=== PATIENT | female | born 1945 | race Hispanic/Latino ===

== ENCOUNTER 2018-03-13 17:50 | Emergency (ER) | payer MEDICARE, OTHER ==
[2018-03-13 19:20] LABS: #Eosinphils 0.1 thou/uL (0.0-0.7); #Lymphocytes 2.8 thou/uL (1.20-3.40); #Monocytes 0.5 thou/uL (0.11-0.59); %Basophils 0.5 % (0.0-1.0); %Eosinophils 0.6 % (0.0-10.0); Hemoglobin 14.4 g/dL (12.0-16.0); Mean Corpuscular HGB CONC 35.6 g/dL (32.0-36.0); Mean Corpuscular Hemoglobin 32.9 pg (27.0-31.0); Mean Corpuscular Volume 92.5 fl (81.0-99.0); Mean Platelet Volume 6.3 fL (7.4-10.4); Platelet Count 192 thou/uL (130-400); RBC Distribution Width 11.7 % (11.5-14.5); Red Blood Cell (RBC) Count 4.39 mill/uL (4.20-5.40); White Blood Cell (WBC) Count 9.4 thou/uL (4.8-10.8)
[2018-03-13 19:40] LABS: ALT (SGPT) 23 U/L (8-55); AST (SGOT) 20 U/L (5-34); Albumin 4.1 g/dL (3.4-4.8); Alkaline Phosphatase 92 U/L (40-150); Anion Gap 14 mmol/L (10-20); BUN (Urea Nitrogen) 17 mg/dL (9.8-20.1); Bilirubin, Total 0.6 mg/dL (0.2-1.2); CK (CPK) 49 U/L (29-168); Calc. Creatinine Clearance 0 mL/min (70-130); Calcium 9.4 mg/dL (7.8-10.44); Carbon Dioxide 24 mmol/L (23-31); Estimated GFR-MDRD 54; Globulin 2.5 g/dL (2.4-3.5); Glucose 87 mg/dL (83-110); Magnesium 1.7 mg/dL (1.6-2.6); Potassium 4.3 mmol/L (3.5-5.1); Protein, Total 6.6 g/dL (6.0-8.3)
[2018-03-13 19:47] LABS: CKMB 0.9 ng/mL (0-6.6); Troponin I Less than 0.010 ng/mL (< 0.028)
[2018-03-13 19:50] LABS: Chloride 96 mmol/L (98-107); Sodium 130 mmol/L (136-145)
[2018-03-13 19:55] LABS: Bilirubin Negative (Negative); Blood, Urine Negative (Negative); Clarity CLOUDY (Clear); Glucose, Urine (Dipstick) Negative (Negative); Leukocyte Trace (Negative); Nitrite Negative (Negative); Protein, Urine (Dipstick) Negative (Neg-Trace); Specific Gravity, Urine 1.011 (1.002-1.036); Urobilinogen 0.2 mg/dL (0.2-1.0)
[2018-03-13 19:58] LABS: Bacteria/HPF None Seen HPF (None Seen); Hyaline Casts/LPF 4-6 HYALINE CAST LPF (0-3 Hyaline); Pathc Cast-AUWi Flag 1.16 (0-2.49); RBC/HPF 0-3 HPF (0-3); Squamous Epithelial 0-3 HPF (0-3); WBC/HPF 0-3 HPF (0-3)
--- NOTE | 2018-03-13 20:12 | CT ---
CT HEAD WITHOUT CONTRAST: 03/13/2018 HISTORY: Swelling. Headache. Altered mental status. Possible allergic reaction. COMPARISON: None. TECHNIQUE: Serial axial CT imaging at 5 mm intervals, from the vertex through the skull base, without contrast. FINDINGS: The imaged paranasal sinuses and mastoid air cells are well aerated. No displaced calvarial fracture is seen. There is no intracranial hemorrhage, midline shift, mass effect, or ventricular enlargemen t. IMPRESSION: No acute findings. POS: GUAADLUPEH
== END 2018-03-13 20:45 | disposition home or self-care (01) ==
LOC: ERS 17:50
DX: R06.4 Hyperventilation (principal); T46.4X5A Adverse effect of angiotensin-converting-enzyme inhibitors, initial encounter; E11.9 Type 2 diabetes mellitus without complications; I10 Essential (primary) hypertension; F17.210 Nicotine dependence, cigarettes, uncomplicated; Z79.82 Long term (current) use of aspirin; Z79.899 Other long term (current) drug therapy; Z79.84 Long term (current) use of oral hypoglycemic drugs
CPT/HCPCS: 36415; 70450; 80053; 81003; 81015; 82550; 82553; 83735; 84443; 84484; 85025; 93005

== ENCOUNTER 2018-11-21 08:10 | Outpatient (CLI) | payer MEDICARE, OTHER ==
--- NOTE | 2018-11-21 09:23 | CT ---
CT OF THE THORAX WITHOUT IV CONTRAST UTILIZING A LUNG CANCER SCREENING PROTOCOL. INDICATION: History of nicotine dependence and currently a current smoker. The patient smokes approximately 1 pa ck per day for 20 years. The patient is 73 years of age. COMPARISON: Prior CT pulmonary lung cancer screening evaluation dated 05/16/2018. FINDINGS: Previously seen 4-5 mm subpleural pulmonary nodule within the right upper lobe has resolved. No new suspicious pulmonary nodule is evident. There is a fat-containing right-sided Bochdalek hernia. No suspicious lymphadenopathy is evident. There are coronary artery thoracic aorta calcifications. Vis ualized upper abdomen is unremarkable. Mild superior end plate compression abnormal of T3, T5, and T 6 are stable to the comparison. This may be related to mild Schmorl's nodes. IMPRESSION: Lung RADS category 2 - benign. Recommend followup CT evaluation in 1 year. Previously seen small potts bpleural pulmonary nodule within the right upper lobe on the comparison examination has resolved. No new suspicious pulmonary nodule is evident. POS: BERNARD
== END 2018-11-21 08:11 | disposition home or self-care (01) ==
LOC: CT 08:10
PROVIDERS: ATTEND Internal Medicine
DX: F17.210 Nicotine dependence, cigarettes, uncomplicated (principal); R22.2 Localized swelling, mass and lump, trunk
CPT/HCPCS: G0297

== ENCOUNTER 2019-01-02 09:13 | Outpatient (CLI) | payer MEDICARE, OTHER ==
--- NOTE | 2019-01-02 10:15 | MMO ---
Bilateral MAMMO Bilat Screen [facility]. CLINICAL HISTORY: Patient is 73 years old and is seen for screening. The patient has the following family history of breast cancer: mother, at age 43. The patient has no personal history of cancer. The patient has a history of left Cyst Aspiration in 1979 - benign. VIEWS: The views performed were: bilateral craniocaudal with tomosynthesis and bilateral mediolateral oblique with tomosynthesis. FILMS COMPARED: The present examination has been compared to prior imaging studies performed at [facility] on 09/15/2012, 09/25/2013, 11/05/2014, 12/25/2015 and 12/31/2016. MAMMOGRAM FINDINGS: There are stable benign appearing calcifications seen in both breasts. There are no suspicious masses, suspicious calcifications, or new areas of architectural distortion. IMPRESSION: THERE IS NO MAMMOGRAPHIC EVIDENCE OF MALIGNANCY. A ROUTINE FOLLOW-UP MAMMOGRAM IN 1 YEAR IS RECOMMENDED. THE RESULTS OF THIS EXAM WERE SENT TO THE PATIENT. ACR BI-RADS Category 2 - Benign finding MAMMOGRAPHY NOTE: 1. A negative mammogram report should not delay a biopsy if a dominant of clinically suspicious mass is present. 2. Approximately 10% to 15% of breast cancers are not detected by mammography. 3. Adenosis and dense breasts may obscure an underlying neoplasm.
--- NOTE | 2019-01-02 11:00 | BD ---
DEXA BONE DENSITY STUDY: HISTORY: Postmenopausal. FINDINGS: Lumbar Spine: BMD (g/cm2) L1 0.891 T-Score: -0.9 L2 0.867 T-Score: -1.5 L3 0.894 T-Score: -1.7 L4 0.864 T-Score: -1.8 L1-L4 0.878 T-Score: -1.5 Femoral Neck: 0.673 T-Score: -1.6 Total Femur: 0.868 T-Score: -0.6 Impression: 1. Osteopenia of lumbar spine and left femoral neck 2. Ten-year fracture risk of major osteoporotic fracture is 11% and of hip fracture is 3%. These fr acture probabilities are calculated for an untreated patient. POS: TPC
== END 2019-01-02 09:14 | disposition home or self-care (01) ==
LOC: BICMAMMO 09:13
PROVIDERS: ATTEND Internal Medicine
DX: Z12.31 Encounter for screening mammogram for malignant neoplasm of breast (principal); M85.89 Other specified disorders of bone density and structure, multiple sites; Z80.3 Family history of malignant neoplasm of breast
CPT/HCPCS: 77063; 77067; 77080

== ENCOUNTER 2019-05-15 11:50 | Outpatient (CLI) | payer MEDICARE, OTHER ==
--- NOTE | 2019-05-16 13:44 | ULT ---
LOWER EXTREMITY ARTERIAL EVALUATION USING DOPPLER WAVEFORM ANALYSIS AND SEGMENTAL LIMB PRESSURES Examination of the right leg reveals satisfactory femoral waveform as well as popliteal and dorsalis pedis waveforms with an ankle-arm of 0.96. Toe-brachial index is slightly diminished. Left lower extremity demonstrates slightly abnormal left femoral waveform but good waveform in the po pliteal and satisfactory waveforms in the pedal vessels with an ankle-arm index of 0.93. Toe-brachial index was slightly decreased. The study demonstrates overall well preserved flow to the lower extremities at rest and there is lashawn e possibility of small vessel disease based on toe-brachial index that is depressed. Wound not expect significant symptoms in this lady in terms of vascular claudication.
== END 2019-05-15 11:51 | disposition home or self-care (01) ==
LOC: ULT 11:50
PROVIDERS: ATTEND Internal Medicine
DX: R09.89 Other specified symptoms and signs involving the circulatory and respiratory systems (principal)
CPT/HCPCS: 93922

== ENCOUNTER 2020-01-22 13:37 | Outpatient (CLI) | payer MEDICARE, OTHER ==
--- NOTE | 2020-01-22 15:15 | MMO ---
Bilateral MAMMO Bilat Screen [facility]. CLINICAL HISTORY: Patient is 74 years old and is seen for screening. The patient has the following family history of breast cancer: mother, at age 43. The patient has no personal history of cancer. The patient has a history of left Cyst Aspiration in 1979 - benign. VIEWS: The views performed were: bilateral craniocaudal with tomosynthesis and bilateral mediolateral oblique with tomosynthesis. FILMS COMPARED: The present examination has been compared to prior imaging studies performed at [facility] on 11/05/2014, 12/25/2015, 12/31/2016 and 01/02/2019. This study has been interpreted with the assistance of computer-aided detection. MAMMOGRAM FINDINGS: There are scattered fibroglandular densities. Benign calcifications are noted bilaterally. There are no suspicious masses, suspicious calcifications, or new areas of architectural distortion. IMPRESSION: THERE IS NO MAMMOGRAPHIC EVIDENCE OF MALIGNANCY. A ROUTINE FOLLOW-UP MAMMOGRAM IN 1 YEAR IS RECOMMENDED. THE RESULTS OF THIS EXAM WERE SENT TO THE PATIENT. ACR BI-RADS Category 2 - Benign finding MAMMOGRAPHY NOTE: 1. A negative mammogram report should not delay a biopsy if a dominant of clinically suspicious mass is present. 2. Approximately 10% to 15% of breast cancers are not detected by mammography. 3. Adenosis and dense breasts may obscure an underlying neoplasm. Reported by: EFRA ZHU MD Electonically Signed: [id number]
== END 2020-01-22 13:38 | disposition home or self-care (01) ==
LOC: BICMAMMO 13:37
PROVIDERS: ATTEND Internal Medicine
DX: Z12.31 Encounter for screening mammogram for malignant neoplasm of breast (principal); Z80.3 Family history of malignant neoplasm of breast
CPT/HCPCS: 77063; 77067

== ENCOUNTER 2020-03-25 11:02 | Outpatient (CLI) | payer MEDICARE, OTHER ==
--- NOTE | 2020-03-25 11:40 | CT ---
EXAM: CT Pulmonary Lung Scan without IV contrast PROVIDED CLINICAL HISTORY: Nicotine dependence and currently smokes. Follow-up evaluation. COMPARISON: 11/21/2018 FINDINGS: No pulmonary nodule, mass, or pleural effusion is seen. Calcified granuloma is again seen in the left upper lobe. Bochdalek hernia at the posteromedial right lung base is again seen. Lack of intravenous contrast limits evaluation of the mediastinal structures as well as vasculature. No definite enlarged lymph nodes are seen by CT size criteria. Vascular calcifications are seen in the thoracic aorta and involving the coronary arteries. The upper abdomen demonstrates a grossly normal nonenhanced CT appearance. Degenerative changes are again seen in the spine. IMPRESSION: Lung RADS category 1-no pulmonary nodule is seen in the lungs bilaterally. Continued annual screening with low-dose CT scan thorax in 12 months is recommended.
== END 2020-03-25 11:03 | disposition home or self-care (01) ==
LOC: BICCT 11:02
PROVIDERS: ATTEND Internal Medicine
DX: Z12.2 Encounter for screening for malignant neoplasm of respiratory organs (principal); F17.210 Nicotine dependence, cigarettes, uncomplicated
CPT/HCPCS: G0297

== ENCOUNTER 2021-02-10 10:44 | Outpatient (CLI) | payer MEDICARE, OTHER ==
[2021-02-10 21:46] LABS: SARS-CoV-2 PCR by NAA Not Detected (NotDetected)
== END 2021-02-10 10:45 | disposition home or self-care (01) ==
LOC: LABBT 10:44
PROVIDERS: ATTEND Student in an Organized Health Care Education/Training Program
DX: Z01.812 Encounter for preprocedural laboratory examination (principal); Z20.822 Contact with and (suspected) exposure to COVID-19
CPT/HCPCS: U0003; U0005; 87635

== ENCOUNTER 2021-02-13 12:10 | Day surgery (SDC) | payer MEDICARE, OTHER ==
[2021-02-10 15:14] VITALS: BMI 24.9
[2021-02-13] MEDS ORDERED: Lidocaine 1% PF 5 ML VIAL ONE (12:14)
[2021-02-13] MEDS ORDERED: Sodium Bicarbonate 2.5 MEQ/5 ML VIAL ONE (12:14)
[2021-02-13 13:37] VITALS: BP 150/58; TEMP 98.1
== END 2021-02-13 13:40 | disposition home or self-care (01) ==
LOC: EEVIPCON 12:10 → ULT 12:10
PROVIDERS: ATTEND Student in an Organized Health Care Education/Training Program
PROC: 0G9G3ZX Drainage of Left Thyroid Gland Lobe, Percutaneous Approach, Diagnostic (ICD-10-PCS; principal; 2021-02-13)
DX: E04.1 Nontoxic single thyroid nodule (principal); K21.9 Gastro-esophageal reflux disease without esophagitis; F17.210 Nicotine dependence, cigarettes, uncomplicated; E11.9 Type 2 diabetes mellitus without complications; I10 Essential (primary) hypertension; M85.80 Other specified disorders of bone density and structure, unspecified site; Z79.82 Long term (current) use of aspirin; Z79.84 Long term (current) use of oral hypoglycemic drugs; Z79.899 Other long term (current) drug therapy; Z88.8 Allergy status to other drugs, medicaments and biological substances
CPT/HCPCS: 60100; 76942; 88173

== ENCOUNTER 2021-06-30 09:34 | Outpatient (CLI) | payer MEDICARE, OTHER | END 2021-06-30 09:35 | disposition home or self-care (01) | LOC: BICMAMMO 09:34 | PROVIDERS: ATTEND Internal Medicine | DX: Z13.820 Encounter for screening for osteoporosis (principal); Z78.0 Asymptomatic menopausal state; M85.89 Other specified disorders of bone density and structure, multiple sites | CPT/HCPCS: 77080 ==

== ENCOUNTER 2022-01-29 12:50 | Outpatient (CLI) | payer MEDICARE, OTHER ==
[2022-01-29 14:16] LABS: Hemoglobin 14.6 g/dL (12.0-15.5); Mean Corpuscular HGB CONC 33.5 g/dL (32.0-36.0); Mean Corpuscular Hemoglobin 31.7 pg (27.0-33.0); Mean Corpuscular Volume 94.6 fl (81.6-98.3); Mean Platelet Volume 9.5 fl (7.4-10.4); Platelet Count 193 10x3/uL (150-450); RBC Distribution Width 12.4 % (11.5-14.5); Red Blood Cell (RBC) Count 4.61 10x6/uL (3.90-5.03); White Blood Cell (WBC) Count 6.3 10x3/uL (3.5-10.5)
[2022-01-29 14:26] LABS: Anion Gap 14 mmol/L (10-20); BUN (Urea Nitrogen) 16 mg/dL (9.8-20.1); Calc. Creatinine Clearance 0 mL/min (70-130); Calcium 9.8 mg/dL (7.8-10.44); Carbon Dioxide 25 mmol/L (23-31); Chloride 105 mmol/L (98-107); Glucose 98 mg/dL (83-110); Potassium 4.3 mmol/L (3.5-5.1); Sodium 140 mmol/L (136-145)
[2022-01-30 00:52] LABS: SARS-CoV-2 PCR by NAA Not Detected (NotDetected)
== END 2022-01-29 12:51 | disposition home or self-care (01) ==
LOC: LABBT 12:50
PROVIDERS: ATTEND Thoracic Surgery (Cardiothoracic Vascular Surgery)
DX: Z01.812 Encounter for preprocedural laboratory examination (principal); Z20.822 Contact with and (suspected) exposure to COVID-19
CPT/HCPCS: 80048; 85027; U0003; U0005

== ENCOUNTER 2022-01-29 15:15 | Inpatient (IN) | payer MEDICARE, OTHER ==
[2022-02-03] MEDS ORDERED: Bupivacaine 0.25% 10 ML VIAL ONE (06:38)
[2022-02-03] MEDS ORDERED: EPINEPHrine 1 MG/ML AMP ONE (06:38)
[2022-02-03] MEDS ORDERED: Heparin 5,000 UNITS/ML VIAL ONE (06:38)
[2022-02-03] MEDS ORDERED: Protamine Sulfate 50 MG/5 ML VIAL ONE (06:38)
[2022-02-03] MEDS ORDERED: Fentanyl 250 MCG/5 ML VIAL ONE (06:44)
[2022-02-03] MEDS ORDERED: Lidocaine 1% MPF 2 ML VIAL ONE (06:56)
[2022-02-03] MEDS ORDERED: Midazolam HCl 2 mg/2 ml Vial ONE (07:01)
[2022-02-03] MEDS ORDERED: ceFAZolin (BATCH) 2 GM/100 ML BAG ONE (07:15)
[2022-02-03] MEDS ORDERED: Labetalol HCl 100 MG/20 ML VIAL ONE (07:25)
[2022-02-03] MEDS ORDERED: Ondansetron PF 4 MG/2 ML Vial ONE (07:25)
[2022-02-03] MEDS ORDERED: Glycopyrrolate 0.2 MG/ML 5 ML SYRINGE ONE (07:25)
[2022-02-03] MEDS ORDERED: Rocuronium Bromide 10 MG/ML (10ML VIAL) ONE (07:25)
[2022-02-03] MEDS ORDERED: PROPOFOL 200 MG/20 ML VIAL ONE (07:25)
[2022-02-03] MEDS ORDERED: Fentanyl 100 MCG/2 ML VIAL ONE ×2 (08:57→09:25)
[2022-02-03] MEDS ORDERED: niCARdipine 25 MG in Sodium Chloride 0.9% 250 ML 250 ML IVPB PRN (09:00)
[2022-02-03] MEDS ORDERED: Fentanyl 100 MCG/2 ML VIAL SLOW IVP PRN (09:00)
[2022-02-03] MEDS ORDERED: Dextrose 50% Abboject 50 ML SYRINGE SLOW IVP PRN (09:00)
[2022-02-03] MEDS ORDERED: Phenylephrine 40 MG in Sodium Chloride 0.9% 250 ML 250 ML IVPB PRN (09:00)
[2022-02-03] MEDS ORDERED: Acetaminophen 325 MG TAB PO PRN (09:00)
[2022-02-03] MEDS ORDERED: Dextrose 5% in Water 1,000 ML IV PRN (09:00)
[2022-02-03] MEDS ORDERED: Lactated Ringer's 1,000 ML IV SCH (09:00)
[2022-02-03] MEDS ORDERED: Insulin Regular 300 UNITS/3 ML VIAL SC PRN (09:00)
[2022-02-03 10:20] VITALS: BMI 25.7
[2022-02-03] MEDS: Ondansetron PF 4 MG/2 ML Vial IVP PRN (10:40)
[2022-02-03] MEDS: Aspirin Chewable 81 MG TAB PO SCH ×2 (11:02→13:12)
[2022-02-03] MEDS: metFORMIN 500 MG TAB PO SCH ×3 (11:02→21:35)
[2022-02-03] MEDS: Gabapentin 400 MG CAP PO SCH ×4 (11:03→21:34)
[2022-02-03] MEDS: Sodium Chloride 0.9% 1,000 ML IV SCH ×2 (11:04→21:41)
[2022-02-03] MEDS: Amlodipine 5 MG TAB PO SCH (11:33)
[2022-02-03] MEDS ORDERED: Promethazine HCl 6.25 MG in Sodium Chloride 0.9% 50 ML IVPB SCH (11:45)
[2022-02-03] MEDS: ceFAZolin (BATCH) 2 GM in Premix Bag 1 BAG IVPB SCH ×2 (14:20→21:42)
[2022-02-03] MEDS: traMADol HCl 50 MG TAB PO PRN ×2 (15:25→21:33)
[2022-02-03] MEDS ORDERED: Atorvastatin Calcium 10 MG TAB PO SCH (21:00)
[2022-02-04] MEDS: traMADol HCl 50 MG TAB PO PRN (04:21)
[2022-02-04] MEDS: Sodium Chloride 0.9% 1,000 ML IV SCH (04:54)
[2022-02-04] MEDS: ceFAZolin (BATCH) 2 GM in Premix Bag 1 BAG IVPB SCH (06:19)
[2022-02-04] MEDS: Ondansetron PF 4 MG/2 ML Vial IVP PRN (07:34)
[2022-02-04] MEDS: Gabapentin 400 MG CAP PO SCH (07:49)
[2022-02-04] MEDS: metFORMIN 500 MG TAB PO SCH (07:50)
[2022-02-04] MEDS: Amlodipine 5 MG TAB PO SCH (07:50)
[2022-02-04] MEDS: Aspirin Chewable 81 MG TAB PO SCH (07:52)
[2022-02-04 08:05] VITALS: TEMP 98.8
== END 2022-02-04 08:48 | disposition home or self-care (01) | DRG 39 ==
LOC: EDSTATUS 15:15 → SURG A 02-03 06:08 → CCU 02-03 10:30
PROVIDERS: ADMIT Thoracic Surgery (Cardiothoracic Vascular Surgery); ATTEND Thoracic Surgery (Cardiothoracic Vascular Surgery)
PROC: 03CL0ZZ Extirpation of Matter from Left Internal Carotid Artery, Open Approach (ICD-10-PCS; principal; 2022-02-03)
PROC: 03UL0KZ Supplement Left Internal Carotid Artery with Nonautologous Tissue Substitute, Open Approach (ICD-10-PCS; 2022-02-03)
DX: I65.22 Occlusion and stenosis of left carotid artery (principal); K21.9 Gastro-esophageal reflux disease without esophagitis; E11.9 Type 2 diabetes mellitus without complications; I10 Essential (primary) hypertension; E78.00 Pure hypercholesterolemia, unspecified; F17.210 Nicotine dependence, cigarettes, uncomplicated; R51.9 Headache, unspecified; Z86.018 Personal history of other benign neoplasm; Z79.899 Other long term (current) drug therapy; Z79.84 Long term (current) use of oral hypoglycemic drugs; Z98.890 Other specified postprocedural states; Z90.49 Acquired absence of other specified parts of digestive tract; Z98.49 Cataract extraction status, unspecified eye; Z83.3 Family history of diabetes mellitus; Z80.9 Family history of malignant neoplasm, unspecified; Z88.8 Allergy status to other drugs, medicaments and biological substances
CPT/HCPCS: 36416; 94640; C1768; J0171; J0690; J1644; J2250; J2405; J2550; J2704; J2720; J3010; J7120; J7620; S0020

== ENCOUNTER 2023-01-10 23:09 | Emergency (ER) | payer MEDICARE, OTHER | END 2023-01-11 01:00 | disposition left against medical advice (07) | LOC: ERS 23:09 | DX: Z53.21 Procedure and treatment not carried out due to patient leaving prior to being seen by health care provider (principal) ==

== ENCOUNTER 2023-02-04 12:28 | Outpatient (CLI) | payer MEDICARE, OTHER | END 2023-02-04 12:29 | disposition home or self-care (01) | LOC: ULT 12:28 | PROVIDERS: ATTEND Physician Assistant | DX: I87.2 Venous insufficiency (chronic) (peripheral) (principal) | CPT/HCPCS: 93970 ==

== ENCOUNTER 2023-05-12 14:43 | Outpatient (CLI) | payer MEDICARE, OTHER | END 2023-05-12 14:44 | disposition home or self-care (01) | LOC: BICMAMMO 14:43 | PROVIDERS: ATTEND Internal Medicine | DX: Z13.820 Encounter for screening for osteoporosis (principal); M85.89 Other specified disorders of bone density and structure, multiple sites; Z78.0 Asymptomatic menopausal state | CPT/HCPCS: 77080 ==

== ENCOUNTER 2023-05-12 18:33 | Emergency (ER) | payer OTHER, MEDICARE ==
[~2023-05-12 18:33] MED LIST: Iopamidol-370 76% 500 ML MDV (1 ML CHARGE) ONE
[2023-05-12] MEDS ORDERED: Morphine 2 MG/ML VIAL ONE (19:59)
[2023-05-12] MEDS ORDERED: Ketorolac Tromethamine 30 MG/ML VIAL ONE (19:59)
[2023-05-12 20:06] LABS: #Eosinphils 0.1 thou/uL (0.0-0.7); #Monocytes 0.5 thou/uL (0.11-0.59); #Neutrophils 5.5 thou/uL (1.40-6.50); %Basophils 0.5 % (0.0-1.0); %Eosinophils 0.7 % (0.0-10.0); %Lymphocytes 25.7 % (21.0-51.0); %Monocytes 5.8 % (0.0-10.0); %Neutrophils 67.1 % (42.0-75.0); Hematocrit 40.3 % (36.0-47.0); Hemoglobin 13.5 g/dL (12.0-16.0); Mean Corpuscular HGB CONC 33.5 g/dL (32.0-36.0); Mean Corpuscular Hemoglobin 29.9 pg (27.0-31.0); Mean Corpuscular Volume 89.2 fl (78.0-98.0); Mean Platelet Volume 9.6 fL (7.4-10.4); Platelet Count 178 10x3/uL (130-400); RBC Distribution Width 13.6 % (11.5-14.5); Red Blood Cell (RBC) Count 4.52 mill/uL (4.20-5.40); White Blood Cell (WBC) Count 8.2 10x3/uL (4.8-10.8)
[2023-05-12] MEDS ORDERED: Ondansetron PF 4 MG/2 ML Vial ONE (20:10)
[2023-05-12 20:31] LABS: Troponin I Less than 0.010 ng/mL (< 0.028)
[2023-05-12 20:54] LABS: ALT (SGPT) 22 U/L (8-55); AST (SGOT) 27 U/L (5-34); Albumin 4.5 g/dL (3.4-4.8); Alkaline Phosphatase 104 U/L (40-110); Anion Gap 18 mmol/L (10-20); BUN (Urea Nitrogen) 10 mg/dL (9.8-20.1); Bilirubin, Total 0.7 mg/dL (0.2-1.2); Calc. Creatinine Clearance 0 mL/min (70-130); Calcium 9.8 mg/dL (7.8-10.44); Carbon Dioxide 18 mmol/L (23-31); Chloride 106 mmol/L (98-107); Estimated GFR 73; Glucose 121 mg/dL (83-110); Lipase 15 U/L (8-78); Potassium 3.9 mmol/L (3.5-5.1); Protein, Total 7.5 g/dL (5.8-8.1); Sodium 138 mmol/L (136-145)
== END 2023-05-12 22:44 | disposition home or self-care (01) ==
LOC: ERS 18:33
DX: R07.89 Other chest pain (principal); E11.9 Type 2 diabetes mellitus without complications; I10 Essential (primary) hypertension; K21.9 Gastro-esophageal reflux disease without esophagitis; F17.210 Nicotine dependence, cigarettes, uncomplicated; Z79.82 Long term (current) use of aspirin; Z79.84 Long term (current) use of oral hypoglycemic drugs
CPT/HCPCS: 70450; 71260; 74177; 80053; 83690; 84484; 85025; 93005; 96374; 96375; J1885; J2272; J2405; Q9967

== ENCOUNTER 2024-02-16 09:42 | Outpatient (CLI) | payer MEDICARE, OTHER ==
[2024-02-16 11:47] LABS: Anion Gap 16 mmol/L (10-20); BUN (Urea Nitrogen) 13 mg/dL (9.8-20.1); Calc. Creatinine Clearance 0 mL/min (70-130); Calcium 9.5 mg/dL (7.8-10.44); Carbon Dioxide 21 mmol/L (23-31); Chloride 105 mmol/L (98-107); Estimated GFR 72; Glucose 161 mg/dL (83-110); Potassium 4.3 mmol/L (3.5-5.1); Sodium 138 mmol/L (136-145)
== END 2024-02-16 09:43 | disposition home or self-care (01) ==
LOC: LABBT 09:42
PROVIDERS: ATTEND Neurological Surgery
DX: Z01.812 Encounter for preprocedural laboratory examination (principal); M54.16 Radiculopathy, lumbar region
CPT/HCPCS: 80048

== ENCOUNTER 2024-02-25 12:05 | Emergency (ER) | payer MEDICARE, OTHER | END 2024-02-25 13:09 | disposition home or self-care (01) | LOC: ERS 12:05 | DX: S61.452D Open bite of left hand, subsequent encounter (principal); I10 Essential (primary) hypertension; E11.9 Type 2 diabetes mellitus without complications; F17.210 Nicotine dependence, cigarettes, uncomplicated; W54.0XXD Bitten by dog, subsequent encounter | CPT/HCPCS: 99282 ==

== ENCOUNTER 2024-04-04 14:44 | Outpatient (CLI) | payer MEDICARE, OTHER | END 2024-04-04 14:45 | disposition home or self-care (01) | LOC: ULT 14:44 | PROVIDERS: ATTEND Otolaryngology | DX: E04.1 Nontoxic single thyroid nodule (principal) | CPT/HCPCS: 76536 ==

== ENCOUNTER 2024-04-19 05:54 | Day surgery (SDC) | payer MEDICARE, OTHER ==
[2024-04-12 15:53] VITALS: BMI 24.5
[2024-04-19] MEDS ORDERED: Thrombin 5000 UNITS/5 ML VIAL ONE (06:11)
[2024-04-19] MEDS ORDERED: EPINEPHrine 1 MG/ML VIAL ONE (06:11)
[2024-04-19] MEDS ORDERED: Bupivacaine PF 0.5% 30 ML VIAL ONE (06:12)
[2024-04-19] MEDS ORDERED: fentaNYL PF 100 MCG/2 ML SYRINGE ONE ×3 (06:17→08:33)
[2024-04-19] MEDS ORDERED: PROPOFOL 20 ML ONE (06:17)
[2024-04-19] MEDS ORDERED: Rocuronium Bromide 10 MG/ML (10ML VIAL) ONE (06:23)
[2024-04-19] MEDS ORDERED: Lidocaine 1% PF 5 ML VIAL ONE (06:23)
[2024-04-19] MEDS ORDERED: CEFAZOLIN 2 GM VIAL ONE ×2 (06:27→12:09)
[2024-04-19] MEDS ORDERED: Sodium Chloride 0.9% 100 ML ONE ×2 (06:27→12:09)
[2024-04-19 07:21] LABS: Anion Gap 14 mmol/L (10-20); BUN (Urea Nitrogen) 11 mg/dL (9.8-20.1); Calc. Creatinine Clearance 61 mL/min (70-130); Calcium 9.4 mg/dL (7.8-10.44); Carbon Dioxide 22 mmol/L (23-31); Chloride 108 mmol/L (98-107); Estimated GFR 77; Glucose 152 mg/dL (83-110); Potassium 4.3 mmol/L (3.5-5.1); Sodium 140 mmol/L (136-145)
[2024-04-19] MEDS ORDERED: Ondansetron PF 4 MG/2 ML Vial ONE ×2 (07:39→08:22)
[2024-04-19] MEDS ORDERED: Dexamethasone 20 MG/5 ML VIAL ONE (07:39)
[2024-04-19] MEDS ORDERED: Ketorolac Tromethamine 30 MG (1 mL) VIAL ONE (07:49)
[2024-04-19] MEDS ORDERED: Dexmedetomidine 200 MCG/2 ML VIAL ONE (07:51)
[2024-04-19] MEDS ORDERED: SUGAMMADEX SODIUM 200 MG/2 ML VIAL ONE (07:56)
[2024-04-19] MEDS ORDERED: HYDROmorphone 0.5 MG/0.5 ML SYRINGE ONE (08:19)
[2024-04-19] MEDS ORDERED: Ipratropium/Albuterol 3 ML NEB ONE (08:49)
[2024-04-19] MEDS ORDERED: HYDROcodone/Acetaminophen 5/325 mg Tablet ONE (09:08)
[2024-04-19] MEDS ORDERED: Promethazine HCl 25 MG/ML VIAL ONE (10:44)
== END 2024-04-19 13:25 | disposition home or self-care (01) ==
LOC: SDC 05:54
PROVIDERS: ATTEND Neurological Surgery
PROC: 0ST20ZZ Resection of Lumbar Vertebral Disc, Open Approach (ICD-10-PCS; principal; 2024-04-19)
DX: M54.16 Radiculopathy, lumbar region (principal); M19.90 Unspecified osteoarthritis, unspecified site; H26.9 Unspecified cataract; F32.A Depression, unspecified; E11.9 Type 2 diabetes mellitus without complications; K21.9 Gastro-esophageal reflux disease without esophagitis; I10 Essential (primary) hypertension; G25.81 Restless legs syndrome; Z98.890 Other specified postprocedural states; Z79.82 Long term (current) use of aspirin; Z79.899 Other long term (current) drug therapy; Z88.8 Allergy status to other drugs, medicaments and biological substances; Z79.84 Long term (current) use of oral hypoglycemic drugs
CPT/HCPCS: 63030; 80048; J0171; J0665; J1100; J1170; J1885; J2405; J2550; J2704; J7620

== ENCOUNTER 2024-06-19 11:21 | Inpatient (IN) | payer MEDICARE, OTHER ==
[2024-06-19 12:13] LABS: #Basophils 0.03 10x3/uL (0.0-0.2); %Basophils 0.4 % (0.0-1.0); %Eosinophils 0.5 % (0.0-10.0); %Monocytes 6.3 % (0.0-10.0); %Neutrophils 65.5 % (42.0-75.0); Hematocrit 30.4 % (36.0-47.0); Hemoglobin 9.2 g/dL (12.0-16.0); Mean Corpuscular HGB CONC 30.3 g/dL (32.0-36.0); Mean Corpuscular Hemoglobin 24.4 pg (27.0-31.0); Mean Corpuscular Volume 80.6 fL (78.0-98.0); Mean Platelet Volume 9.4 fL (7.4-10.4); Platelet Count 218 10x3/uL (130-400); RBC Distribution Width 17.1 % (11.5-14.5); Red Blood Cell (RBC) Count 3.77 mill/uL (4.20-5.40)
[2024-06-19 12:31] LABS: ALT (SGPT) 22 U/L (8-55); AST (SGOT) 23 U/L (5-34); Alkaline Phosphatase 101 U/L (40-110); Anion Gap 15 mmol/L (10-20); BUN (Urea Nitrogen) 9 mg/dL (9.8-20.1); Bilirubin, Total 0.8 mg/dL (0.2-1.2); Calc. Creatinine Clearance 0 mL/min (70-130); Calcium 9.4 mg/dL (7.8-10.44); Carbon Dioxide 21 mmol/L (23-31); Chloride 101 mmol/L (98-107); Estimated GFR 78; Glucose 139 mg/dL (83-110); Potassium 3.9 mmol/L (3.5-5.1); Sodium 133 mmol/L (136-145)
[2024-06-19 12:39] LABS: Troponin I 0.025 ng/mL (< 0.028)
[2024-06-19 15:25] LABS: Bacteria/HPF None Seen HPF (None Seen); Bilirubin Negative (Negative); Blood, Urine Negative (Negative); CAUTI Indications for Culture Pelvic or flank pain; Clarity Clear (Clear); Glucose, Urine (Dipstick) Normal (Negative); Ketone, Urine Negative (Negative); Leukocyte Negative Leu/uL (Negative); Nitrite Negative (Negative); Protein, Urine (Dipstick) Negative (Neg-Trace); RBC/HPF 0-3 HPF (0-3); Specific Gravity, Urine 1.005 (1.002-1.036); Squamous Epithelial 0-3 HPF (0-3); Urobilinogen Normal mg/dL (Less than 2); WBC/HPF 0-3 HPF (0-3); pH, Urine 5.5 (5.0-9.0)
[2024-06-19] MEDS ORDERED: dilTIAZem 125 MG/25 ML SDV ONE (15:27)
[2024-06-19] MEDS ORDERED: dilTIAZem 25 MG/5 ML VIAL ONE (15:27)
[2024-06-19 15:28] LABS: Urine Culture Reflex No No
[2024-06-19] MEDS ORDERED: Dextrose 5% in Water 1,000 ML IV PRN (19:20)
[2024-06-19] MEDS ORDERED: Acetaminophen 650 MG Suppository PR PRN (19:20)
[2024-06-19] MEDS ORDERED: Glucagon 1 MG/ML KIT IM PRN (19:20)
[2024-06-19] MEDS ORDERED: Dextrose 50% Abboject 50 ML SYRINGE SLOW IVP PRN (19:20)
[2024-06-19 20:28] LABS: Magnesium 1.8 mg/dL (1.6-2.6)
[2024-06-19 20:35] LABS: Troponin I Less than 0.010 ng/mL (< 0.028)
[2024-06-19] MEDS: Acetaminophen 325 MG TAB PO SCH (20:46)
[2024-06-19] MEDS: Gabapentin 400 MG CAP PO SCH (20:46)
[2024-06-19] MEDS: rOPINIRole HCl 1 MG TAB PO SCH (20:46)
[2024-06-19 20:53] VITALS: BMI 25.1
[2024-06-19] MEDS: Ondansetron ODT 4 MG TAB PO PRN (20:55)
[2024-06-19] MEDS: Amiodarone 450 MG in Dextrose 5% in Water 250 ML IVPB SCH (21:53)
[2024-06-19 22:41] LABS: Troponin I 0.015 ng/mL (< 0.028)
[2024-06-20 06:47] LABS: #Basophils 0.03 10x3/uL (0.0-0.2); %Basophils 0.5 % (0.0-1.0); %Eosinophils 1.8 % (0.0-10.0); %Lymphocytes 29.4 % (21.0-51.0); %Monocytes 8.8 % (0.0-10.0); %Neutrophils 59.3 % (42.0-75.0); Hematocrit 28.7 % (36.0-47.0); Hemoglobin 8.6 g/dL (12.0-16.0); Mean Corpuscular Volume 80.2 fL (78.0-98.0); Mean Platelet Volume 9.7 fL (7.4-10.4); Platelet Count 187 10x3/uL (130-400); RBC Distribution Width 17.1 % (11.5-14.5); Red Blood Cell (RBC) Count 3.58 mill/uL (4.20-5.40)
[2024-06-20 07:02] LABS: Anion Gap 14 mmol/L (10-20); BUN (Urea Nitrogen) 10 mg/dL (9.8-20.1); Calc. Creatinine Clearance 66 mL/min (70-130); Calcium 9.4 mg/dL (7.8-10.44); Carbon Dioxide 21 mmol/L (23-31); Chloride 105 mmol/L (98-107); Estimated GFR 82; Glucose 151 mg/dL (83-110); Potassium 3.9 mmol/L (3.5-5.1); Sodium 136 mmol/L (136-145)
[2024-06-20] MEDS: Pantoprazole DR 40 MG TAB PO SCH (08:51)
[2024-06-20] MEDS: Cyanocobalamin (Vitamin B-12) 1,000 MCG TAB PO SCH (08:51)
[2024-06-20] MEDS: Atorvastatin Calcium 10 MG TAB PO SCH (08:51)
[2024-06-20] MEDS: Insulin Lispro 100 UNIT/ML 10 ML VIAL SC PRN (11:58)
[2024-06-20] MEDS: Nicotine 21 MG PATCH TD PRN (12:04)
[2024-06-20] MEDS: Amiodarone 200 MG TAB PO SCH (20:53)
[2024-06-20] MEDS: rOPINIRole HCl 0.25 MG TAB PO SCH (20:54)
[2024-06-20] MEDS: Enoxaparin 80 MG (0.8 mL) SYRINGE SC SCH (20:54)
[2024-06-21 05:12] LABS: #Basophils Less than 0.03 10x3/uL (0.0-0.2); %Basophils 0.4 % (0.0-1.0); %Eosinophils 1.6 % (0.0-10.0); %Lymphocytes 34.8 % (21.0-51.0); %Monocytes 7.8 % (0.0-10.0); %Neutrophils 55.2 % (42.0-75.0); Hematocrit 28.1 % (36.0-47.0); Hemoglobin 8.3 g/dL (12.0-16.0); Mean Corpuscular HGB CONC 29.5 g/dL (32.0-36.0); Mean Corpuscular Hemoglobin 24.3 pg (27.0-31.0); Mean Corpuscular Volume 82.4 fL (78.0-98.0); Mean Platelet Volume 10.2 fL (7.4-10.4); Platelet Count 169 10x3/uL (130-400); RBC Distribution Width 17.1 % (11.5-14.5); Red Blood Cell (RBC) Count 3.41 mill/uL (4.20-5.40)
[2024-06-21 05:44] LABS: Anion Gap 14 mmol/L (10-20); BUN (Urea Nitrogen) 9 mg/dL (9.8-20.1); Calc. Creatinine Clearance 64 mL/min (70-130); Carbon Dioxide 21 mmol/L (23-31); Chloride 103 mmol/L (98-107); Estimated GFR 79; Glucose 159 mg/dL (83-110); Potassium 3.6 mmol/L (3.5-5.1); Sodium 134 mmol/L (136-145)
[2024-06-21 06:25] LABS: Calcium 9.3 mg/dL (7.8-10.44); Magnesium 1.8 mg/dL (1.6-2.6)
[2024-06-21] MEDS: Ferrous Sulfate 325 MG TAB PO SCH (08:00)
[2024-06-21] MEDS: metFORMIN 500 MG TAB PO SCH (08:00)
[2024-06-21] MEDS: Amlodipine 10 MG TAB PO SCH (08:01)
[2024-06-21] MEDS: Ondansetron PF 4 MG/2 ML Vial IVP PRN (10:27)
[2024-06-21] MEDS: GoLYTELY 4,000 ml Bottle PO SCH (17:53)
[2024-06-21] MEDS: Diltiazem HCl/D5W 125 MG in Premix 1 BAG IVPB SCH (20:36)
[2024-06-22] MEDS ORDERED: PROPOFOL 40 ML ONE (09:30)
[2024-06-22] MEDS ORDERED: Ketamine In 0.9 % NaCl 50 MG/5 ML SYRINGE ONE (10:45)
[2024-06-22] MEDS ORDERED: Midazolam HCl 2 mg/2 ml Vial ONE (10:45)
[2024-06-22] MEDS ORDERED: Enoxaparin 80 MG (0.8 mL) SYRINGE SC SCH (21:00)
[2024-06-23 04:32] LABS: #Basophils 0.03 10x3/uL (0.0-0.2); %Basophils 0.4 % (0.0-1.0); %Eosinophils 0.9 % (0.0-10.0); %Lymphocytes 23.1 % (21.0-51.0); %Monocytes 6.8 % (0.0-10.0); %Neutrophils 68.5 % (42.0-75.0); Hematocrit 27.2 % (36.0-47.0); Hemoglobin 8.1 g/dL (12.0-16.0); Mean Corpuscular HGB CONC 29.8 g/dL (32.0-36.0); Mean Corpuscular Hemoglobin 24.5 pg (27.0-31.0); Mean Corpuscular Volume 82.2 fL (78.0-98.0); Mean Platelet Volume 9.6 fL (7.4-10.4); Platelet Count 181 10x3/uL (130-400); RBC Distribution Width 17.3 % (11.5-14.5); Red Blood Cell (RBC) Count 3.31 mill/uL (4.20-5.40)
[2024-06-23 04:48] LABS: Anion Gap 14 mmol/L (10-20); BUN (Urea Nitrogen) 9 mg/dL (9.8-20.1); Calc. Creatinine Clearance 64 mL/min (70-130); Calcium 8.9 mg/dL (7.8-10.44); Carbon Dioxide 22 mmol/L (23-31); Chloride 103 mmol/L (98-107); Estimated GFR 79; Glucose 150 mg/dL (83-110); Potassium 3.8 mmol/L (3.5-5.1); Sodium 135 mmol/L (136-145)
[2024-06-23] MEDS: Apixaban 5 MG TAB PO SCH (20:02)
[2024-06-23] MEDS ORDERED: Enoxaparin 80 MG (0.8 mL) SYRINGE SC SCH (21:00)
[2024-06-23] MEDS: traMADol HCl 50 MG TAB PO SCH (23:57)
[2024-06-23] MEDS: Metoprolol Tartrate 5 MG (5 mL) VIAL IVP SCH (23:57)
[2024-06-24 03:51] LABS: #Basophils Less than 0.03 10x3/uL (0.0-0.2); %Basophils 0.2 % (0.0-1.0); %Eosinophils 0.5 % (0.0-10.0); %Lymphocytes 18.2 % (21.0-51.0); %Monocytes 6.4 % (0.0-10.0); %Neutrophils 74.6 % (42.0-75.0); Hematocrit 26.8 % (36.0-47.0); Hemoglobin 7.8 g/dL (12.0-16.0); Mean Corpuscular HGB CONC 29.1 g/dL (32.0-36.0); Mean Corpuscular Hemoglobin 24.3 pg (27.0-31.0); Mean Corpuscular Volume 83.5 fL (78.0-98.0); Mean Platelet Volume 9.7 fL (7.4-10.4); Platelet Count 196 10x3/uL (130-400); RBC Distribution Width 17.2 % (11.5-14.5); Red Blood Cell (RBC) Count 3.21 mill/uL (4.20-5.40)
[2024-06-24 04:11] LABS: ALT (SGPT) 21 U/L (8-55); AST (SGOT) 19 U/L (5-34); Albumin 3.5 g/dL (3.4-4.8); Alkaline Phosphatase 88 U/L (40-110); Anion Gap 14 mmol/L (10-20); BUN (Urea Nitrogen) 12 mg/dL (9.8-20.1); Bilirubin, Total 0.9 mg/dL (0.2-1.2); Calc. Creatinine Clearance 59 mL/min (70-130); Calcium 9.1 mg/dL (7.8-10.44); Carbon Dioxide 21 mmol/L (23-31); Chloride 103 mmol/L (98-107); Estimated GFR 72; Globulin 2.7 g/dL (2.4-3.5); Glucose 168 mg/dL (83-110); Magnesium 1.6 mg/dL (1.6-2.6); Potassium 3.9 mmol/L (3.5-5.1); Protein, Total 6.2 g/dL (5.8-8.1); Sodium 134 mmol/L (136-145)
[2024-06-24] MEDS ORDERED: Iopamidol 370 76% 100 ML VIAL ONE (09:04)
[2024-06-24] MEDS ORDERED: hydrALAZINE 20 MG/ML VIAL SLOW IVP PRN (13:41)
[2024-06-24] MEDS ORDERED: Morphine 2 MG/ML VIAL SLOW IVP PRN (14:05)
[2024-06-24] MEDS: rOPINIRole HCl 0.25 MG TAB PO SCH (14:46)
[2024-06-24] MEDS: HYDROcodone/Acetaminophen 5/325 mg Tablet PO PRN (16:37)
[2024-06-24] MEDS: Simethicone Chewable 80 MG TAB PO PRN (20:35)
[2024-06-25 04:21] LABS: #Basophils Less than 0.03 10x3/uL (0.0-0.2); %Basophils 0.3 % (0.0-1.0); %Eosinophils 0.9 % (0.0-10.0); %Lymphocytes 14.8 % (21.0-51.0); %Monocytes 6.4 % (0.0-10.0); %Neutrophils 77.3 % (42.0-75.0); Hematocrit 26.8 % (36.0-47.0); Hemoglobin 7.9 g/dL (12.0-16.0); Mean Corpuscular HGB CONC 29.5 g/dL (32.0-36.0); Mean Corpuscular Hemoglobin 24.1 pg (27.0-31.0); Mean Corpuscular Volume 81.7 fL (78.0-98.0); Mean Platelet Volume 9.8 fL (7.4-10.4); Platelet Count 188 10x3/uL (130-400); RBC Distribution Width 16.9 % (11.5-14.5); Red Blood Cell (RBC) Count 3.28 mill/uL (4.20-5.40)
[2024-06-25 04:43] LABS: ALT (SGPT) 19 U/L (8-55); AST (SGOT) 14 U/L (5-34); Albumin 3.5 g/dL (3.4-4.8); Alkaline Phosphatase 84 U/L (40-110); Anion Gap 14 mmol/L (10-20); BUN (Urea Nitrogen) 14 mg/dL (9.8-20.1); Calc. Creatinine Clearance 55 mL/min (70-130); Carbon Dioxide 21 mmol/L (23-31); Chloride 99 mmol/L (98-107); Estimated GFR 66; Globulin 2.8 g/dL (2.4-3.5); Glucose 156 mg/dL (83-110); Potassium 3.8 mmol/L (3.5-5.1); Protein, Total 6.3 g/dL (5.8-8.1); Sodium 130 mmol/L (136-145)
[2024-06-25] MEDS: Polyethylene Glycol 3350 17 GM Packet PO SCH (10:38)
[2024-06-25] MEDS ORDERED: Promethazine HCl 25 MG in Sodium Chloride 0.9% 50 ML IVPB PRN (13:17)
[2024-06-25] MEDS: Promethazine HCl 25 MG in Sodium Chloride 0.9% 50 ML IVPB SCH ×2 (14:15→21:34)
[2024-06-26 15:18] LABS: #Basophils Less than 0.03 10x3/uL (0.0-0.2); #Eosinphils Less than 0.03 10x3/uL (0.0-0.7); %Basophils 0.2 % (0.0-1.0); %Lymphocytes 13.4 % (21.0-51.0); %Monocytes 5.4 % (0.0-10.0); %Neutrophils 79.7 % (42.0-75.0); Hematocrit 28.4 % (36.0-47.0); Hemoglobin 8.6 g/dL (12.0-16.0); Mean Corpuscular HGB CONC 30.3 g/dL (32.0-36.0); Mean Corpuscular Volume 79.1 fL (78.0-98.0); Mean Platelet Volume 9.6 fL (7.4-10.4); Platelet Count 311 10x3/uL (130-400); RBC Distribution Width 17.1 % (11.5-14.5); Red Blood Cell (RBC) Count 3.59 mill/uL (4.20-5.40)
[2024-06-26 15:31] LABS: ALT (SGPT) 17 U/L (8-55); AST (SGOT) 18 U/L (5-34); Albumin 3.9 g/dL (3.4-4.8); Alkaline Phosphatase 88 U/L (40-110); Anion Gap 17 mmol/L (10-20); BUN (Urea Nitrogen) 21 mg/dL (9.8-20.1); Calc. Creatinine Clearance 48 mL/min (70-130); Calcium 9.2 mg/dL (7.8-10.44); Carbon Dioxide 17 mmol/L (23-31); Chloride 92 mmol/L (98-107); Estimated GFR 57; Globulin 2.8 g/dL (2.4-3.5); Glucose 188 mg/dL (83-110); Potassium 4.1 mmol/L (3.5-5.1); Protein, Total 6.7 g/dL (5.8-8.1); Sodium 122 mmol/L (136-145)
[2024-06-27] MEDS: Sodium Chloride 0.9% 1,000 ML IV SCH (10:38)
[2024-06-27 11:00] LABS: ALT (SGPT) 19 U/L (8-55); AST (SGOT) 20 U/L (5-34); Alkaline Phosphatase 84 U/L (40-110); Anion Gap 17 mmol/L (10-20); BUN (Urea Nitrogen) 26 mg/dL (9.8-20.1); Bilirubin, Total 0.9 mg/dL (0.2-1.2); Calc. Creatinine Clearance 46 mL/min (70-130); Calcium 9.3 mg/dL (7.8-10.44); Carbon Dioxide 18 mmol/L (23-31); Chloride 91 mmol/L (98-107); Estimated GFR 54; Globulin 2.9 g/dL (2.4-3.5); Glucose 161 mg/dL (83-110); Potassium 4.1 mmol/L (3.5-5.1); Protein, Total 6.9 g/dL (5.8-8.1); Sodium 122 mmol/L (136-145)
[2024-06-27] MEDS: Metoclopramide HCl 10 MG (2 mL) VIAL IVP PRN (12:17)
[2024-06-27] MEDS: Lorazepam 0.5 MG TAB PO PRN (15:14)
[2024-06-27] MEDS ORDERED: Ipratropium/Albuterol 3 ML NEB NEB PRN (21:52)
[2024-06-28] MEDS: Meclizine HCl 25 MG TAB PO PRN (00:44)
[2024-06-28] MEDS ORDERED: Albuterol 2.5 MG (3 mL) NEB NEB PRN (02:23)
[2024-06-28] MEDS: methylPREDNISolone Sod Succ 40 MG VIAL IVP SCH ×2 (02:43→04:53)
[2024-06-28 03:04] LABS: #Basophils 0.03 10x3/uL (0.0-0.2); #Eosinphils Less than 0.03 10x3/uL (0.0-0.7); %Basophils 0.3 % (0.0-1.0); %Eosinophils 0.1 % (0.0-10.0); %Lymphocytes 22.3 % (21.0-51.0); %Monocytes 8.8 % (0.0-10.0); %Neutrophils 67.9 % (42.0-75.0); Hemoglobin 8.2 g/dL (12.0-16.0); Mean Corpuscular HGB CONC 30.4 g/dL (32.0-36.0); Mean Corpuscular Volume 79.2 fL (78.0-98.0); Mean Platelet Volume 9.2 fL (7.4-10.4); Platelet Count 276 10x3/uL (130-400); RBC Distribution Width 17.2 % (11.5-14.5); Red Blood Cell (RBC) Count 3.41 mill/uL (4.20-5.40)
[2024-06-28 03:17] LABS: Lactic Acid 2.43 mmol/L (0.5-2.2)
[2024-06-28 03:20] LABS: Actual Bicarbonate (HCO3a) 17.3 mEq/L (22-28); Base Excess (BEa) -6.2 mEq/L (-2.0 to +3.0); CO2 Tension 27.7 mmHg (35.0-45.0); Calcium, Ionized (arterial) 1.14 mmol/L (1.12-1.30); Carboxyhemoglobin (COHb) 0.6 gm% (0.0-3.0); Hematocrit-ABG 28 % (36.0-47.0); Hemoglobin (Hb) 9.4 g/dL (12.0-16.0); Potassium - ABG Lab 4.45 mmol/L (3.70-5.30); pH, Arterial 7.414 (7.35-7.45)
[2024-06-28 03:22] LABS: Puncture Site Left Radial artery
[2024-06-28 03:23] LABS: ALT (SGPT) 16 U/L (8-55); AST (SGOT) 20 U/L (5-34); Albumin 3.7 g/dL (3.4-4.8); Alkaline Phosphatase 79 U/L (40-110); Anion Gap 16 mmol/L (10-20); BUN (Urea Nitrogen) 32 mg/dL (9.8-20.1); Bilirubin, Total 0.6 mg/dL (0.2-1.2); Calc. Creatinine Clearance 37 mL/min (70-130); Calcium 9.1 mg/dL (7.8-10.44); Carbon Dioxide 16 mmol/L (23-31); Chloride 92 mmol/L (98-107); Estimated GFR 41; Globulin 2.5 g/dL (2.4-3.5); Glucose 154 mg/dL (83-110); Potassium 4.6 mmol/L (3.5-5.1); Protein, Total 6.2 g/dL (5.8-8.1); Sodium 119 mmol/L (136-145)
[2024-06-28 03:23] LABS: ALV-art Gradient 603.375 mmHg (0-20)
[2024-06-28] MEDS: Sodium Chloride 0.9% 1,000 ML IV SCH (03:51)
[2024-06-28] MEDS: Ipratropium/Albuterol 3 ML NEB NEB SCH (07:30)
[2024-06-28] MEDS: Sodium Bicarb 50 MEQ/50 ML Abboject 8.4% SYRINGE IVP SCH (08:29)
[2024-06-28] MEDS ORDERED: Furosemide 40 MG (4 mL) VIAL SLOW IVP SCH (08:30)
[2024-06-28] MEDS: Furosemide 40 MG (4 mL) VIAL SLOW IVP SCH ×2 (08:36→17:13)
[2024-06-28 09:13] LABS: Anion Gap 15 mmol/L (10-20); BUN (Urea Nitrogen) 29 mg/dL (9.8-20.1); Calc. Creatinine Clearance 44 mL/min (70-130); Carbon Dioxide 14 mmol/L (23-31); Chloride 98 mmol/L (98-107); Estimated GFR 50; Glucose 199 mg/dL (83-110); Sodium 123 mmol/L (136-145)
[2024-06-28] MEDS ORDERED: Lidocaine/Transparent Dressing 1 EACH KIT TP SCH (14:15)
[2024-06-28] MEDS: Amiodarone 200 MG TAB PO SCH (20:22)
[2024-06-28] MEDS: Insulin Lispro 100 UNIT/ML 10 ML VIAL SC PRN (20:23)
[2024-06-29 10:01] LABS: #Basophils Less than 0.03 10x3/uL (0.0-0.2); #Eosinphils Less than 0.03 10x3/uL (0.0-0.7); %Basophils 0.1 % (0.0-1.0); %Lymphocytes 14.4 % (21.0-51.0); %Neutrophils 77.1 % (42.0-75.0); Hematocrit 24.5 % (36.0-47.0); Hemoglobin 7.7 g/dL (12.0-16.0); Mean Corpuscular HGB CONC 31.4 g/dL (32.0-36.0); Mean Corpuscular Hemoglobin 24.2 pg (27.0-31.0); Mean Platelet Volume 9.1 fL (7.4-10.4); Platelet Count 268 10x3/uL (130-400); RBC Distribution Width 17.2 % (11.5-14.5); Red Blood Cell (RBC) Count 3.18 mill/uL (4.20-5.40)
[2024-06-29 10:03] LABS: ALT (SGPT) 20 U/L (8-55); AST (SGOT) 24 U/L (5-34); Albumin 3.9 g/dL (3.4-4.8); Alkaline Phosphatase 79 U/L (40-110); Anion Gap 13 mmol/L (10-20); BUN (Urea Nitrogen) 32 mg/dL (9.8-20.1); Bilirubin, Total 0.7 mg/dL (0.2-1.2); Calc. Creatinine Clearance 40 mL/min (70-130); Calcium 9.2 mg/dL (7.8-10.44); Carbon Dioxide 20 mmol/L (23-31); Chloride 92 mmol/L (98-107); Estimated GFR 45; Globulin 2.6 g/dL (2.4-3.5); Glucose 175 mg/dL (83-110); Potassium 4.2 mmol/L (3.5-5.1); Protein, Total 6.5 g/dL (5.8-8.1); Sodium 121 mmol/L (136-145)
[2024-06-29] MEDS: Furosemide 40 MG (4 mL) VIAL SLOW IVP SCH ×2 (10:18→14:27)
[2024-06-29] MEDS: Potassium Chloride 20 MEQ TAB PO SCH (14:18)
[2024-06-29 14:55] LABS: #Basophils Less than 0.03 10x3/uL (0.0-0.2); #Eosinphils Less than 0.03 10x3/uL (0.0-0.7); %Basophils 0.1 % (0.0-1.0); %Eosinophils 0.1 % (0.0-10.0); %Lymphocytes 19.6 % (21.0-51.0); %Monocytes 8.2 % (0.0-10.0); %Neutrophils 71.6 % (42.0-75.0); Hematocrit 26.3 % (36.0-47.0); Hemoglobin 8.2 g/dL (12.0-16.0); Mean Corpuscular HGB CONC 31.2 g/dL (32.0-36.0); Mean Corpuscular Hemoglobin 24.6 pg (27.0-31.0); Mean Corpuscular Volume 78.7 fL (78.0-98.0); Mean Platelet Volume 9.2 fL (7.4-10.4); Platelet Count 278 10x3/uL (130-400); RBC Distribution Width 17.1 % (11.5-14.5); Red Blood Cell (RBC) Count 3.34 mill/uL (4.20-5.40)
[2024-06-29] MEDS: Calcium Carbonate 500 MG ChewTAB PO PRN (15:02)
[2024-06-29 15:13] LABS: ALT (SGPT) 22 U/L (8-55); AST (SGOT) 28 U/L (5-34); Albumin 4.2 g/dL (3.4-4.8); Alkaline Phosphatase 85 U/L (40-110); Anion Gap 14 mmol/L (10-20); BUN (Urea Nitrogen) 31 mg/dL (9.8-20.1); Bilirubin, Total 0.8 mg/dL (0.2-1.2); Calc. Creatinine Clearance 39 mL/min (70-130); Calcium 9.4 mg/dL (7.8-10.44); Carbon Dioxide 23 mmol/L (23-31); Chloride 91 mmol/L (98-107); Estimated GFR 43; Globulin 2.5 g/dL (2.4-3.5); Glucose 169 mg/dL (83-110); Lipase 32 U/L (8-78); Potassium 3.9 mmol/L (3.5-5.1); Protein, Total 6.7 g/dL (5.8-8.1); Sodium 124 mmol/L (136-145)
[2024-06-29 15:15] LABS: Troponin I 0.036 ng/mL (< 0.028)
[2024-06-29] MEDS: Mag-Al 1200 mg/1200 mg/30 ML UDCUP PO PRN (15:31)
[2024-06-29] MEDS: Amiodarone 450 MG, Admixture Fee 1 EACH in Dextrose 5% in Water 250 ML IVPB SCH (15:48)
[2024-06-29 17:26] LABS: Bilirubin Negative (Negative); Blood, Urine Negative (Negative); CAUTI Indications for Culture Dysuria,urgency,freq; Clarity Clear (Clear); Glucose, Urine (Dipstick) Normal (Negative); Ketone, Urine Negative (Negative); Leukocyte 250 Leu/uL (Negative); Nitrite Negative (Negative); Protein, Urine (Dipstick) Negative (Neg-Trace); RBC/HPF 0-3 HPF (0-3); Squamous Epithelial 0-3 HPF (0-3); Urobilinogen Normal mg/dL (Less than 2)
[2024-06-29 17:27] LABS: Troponin I 0.038 ng/mL (< 0.028)
[2024-06-29 17:30] LABS: Bacteria/HPF 1+ HPF (None Seen)
[2024-06-29 17:32] LABS: Urine Culture Reflex Yes Yes
[2024-06-30 06:00] LABS: #Basophils Less than 0.03 10x3/uL (0.0-0.2); #Eosinphils Less than 0.03 10x3/uL (0.0-0.7); %Basophils 0.1 % (0.0-1.0); %Eosinophils 0.1 % (0.0-10.0); %Lymphocytes 17.5 % (21.0-51.0); %Monocytes 8.1 % (0.0-10.0); %Neutrophils 73.8 % (42.0-75.0); Hematocrit 25.7 % (36.0-47.0); Hemoglobin 7.8 g/dL (12.0-16.0); Mean Corpuscular HGB CONC 30.4 g/dL (32.0-36.0); Mean Corpuscular Hemoglobin 23.9 pg (27.0-31.0); Mean Corpuscular Volume 78.6 fL (78.0-98.0); Mean Platelet Volume 8.9 fL (7.4-10.4); Platelet Count 262 10x3/uL (130-400); RBC Distribution Width 17.1 % (11.5-14.5); Red Blood Cell (RBC) Count 3.27 mill/uL (4.20-5.40)
[2024-06-30 06:14] LABS: Anion Gap 13 mmol/L (10-20); BUN (Urea Nitrogen) 27 mg/dL (9.8-20.1); Calc. Creatinine Clearance 42 mL/min (70-130); Calcium 9.1 mg/dL (7.8-10.44); Carbon Dioxide 25 mmol/L (23-31); Chloride 91 mmol/L (98-107); Estimated GFR 48; Glucose 155 mg/dL (83-110); Sodium 125 mmol/L (136-145)
[2024-06-30] MEDS: Potassium Chloride 20 MEQ TAB PO SCH (08:22)
[2024-06-30] MEDS: rOPINIRole HCl 0.25 MG TAB PO SCH (09:36)
[2024-06-30] MEDS: Polyvinyl Alcohol 1.4%/Povidone 0.6% Opth Drops EA EYE SCH (10:29)
[2024-06-30] MEDS: cefTRIAXone\\ROCEPHIN 1 GM in Sodium Chloride 0.9% 100 ML IVPB SCH (11:55)
[2024-06-30 15:10] VITALS: BMI 26.9
[2024-07-01 04:31] LABS: #Basophils 0.03 10x3/uL (0.0-0.2); #Eosinphils Less than 0.03 10x3/uL (0.0-0.7); %Basophils 0.5 % (0.0-1.0); %Eosinophils 0.3 % (0.0-10.0); %Monocytes 7.2 % (0.0-10.0); %Neutrophils 70.5 % (42.0-75.0); Hemoglobin 7.8 g/dL (12.0-16.0); Mean Corpuscular Hemoglobin 24.1 pg (27.0-31.0); Mean Corpuscular Volume 80.2 fL (78.0-98.0); Mean Platelet Volume 8.9 fL (7.4-10.4); Platelet Count 258 10x3/uL (130-400); Red Blood Cell (RBC) Count 3.24 mill/uL (4.20-5.40)
[2024-07-01 04:45] LABS: Anion Gap 13 mmol/L (10-20); BUN (Urea Nitrogen) 20 mg/dL (9.8-20.1); Calc. Creatinine Clearance 53 mL/min (70-130); Calcium 9.1 mg/dL (7.8-10.44); Carbon Dioxide 27 mmol/L (23-31); Chloride 94 mmol/L (98-107); Estimated GFR 58; Glucose 167 mg/dL (83-110); Potassium 4.2 mmol/L (3.5-5.1); Sodium 130 mmol/L (136-145)
[2024-07-01] MEDS: Metoprolol Tartrate 5 MG (5 mL) VIAL IVP SCH (04:59)
[2024-07-01 06:04] LABS: Magnesium 1.6 mg/dL (1.6-2.6)
[2024-07-01] MEDS: Ipratropium/Albuterol 3 ML NEB NEB SCH (18:48)
[2024-07-01 19:37] VITALS: BP 126/60; TEMP 97.3
== END 2024-07-01 21:15 | disposition short-term general hospital (02) | DRG 377 ==
LOC: ERS 11:21 → 2SW 18:17 → CCU 06-29 14:02 → 2NO 06-30 17:22
PROVIDERS: ADMIT Internal Medicine; ATTEND Hospitalist
PROC: 0W3P8ZZ Control Bleeding in Gastrointestinal Tract, Via Natural or Artificial Opening Endoscopic (ICD-10-PCS; principal; 2024-06-22)
PROC: 0DJ08ZZ Inspection of Upper Intestinal Tract, Via Natural or Artificial Opening Endoscopic (ICD-10-PCS; 2024-06-22)
DX: K31.811 Angiodysplasia of stomach and duodenum with bleeding (principal); J96.01 Acute respiratory failure with hypoxia; K76.6 Portal hypertension; E87.1 Hypo-osmolality and hyponatremia; D62 Acute posthemorrhagic anemia; N39.0 Urinary tract infection, site not specified; N17.9 Acute kidney failure, unspecified; I48.4 Atypical atrial flutter; I48.0 Paroxysmal atrial fibrillation; I35.0 Nonrheumatic aortic (valve) stenosis; D50.9 Iron deficiency anemia, unspecified; K21.9 Gastro-esophageal reflux disease without esophagitis; I25.10 Atherosclerotic heart disease of native coronary artery without angina pectoris; G25.81 Restless legs syndrome; E78.5 Hyperlipidemia, unspecified; F17.210 Nicotine dependence, cigarettes, uncomplicated; E55.9 Vitamin D deficiency, unspecified; F32.A Depression, unspecified; K74.60 Unspecified cirrhosis of liver; K31.89 Other diseases of stomach and duodenum; K31.7 Polyp of stomach and duodenum; K63.5 Polyp of colon; E87.70 Fluid overload, unspecified; E11.22 Type 2 diabetes mellitus with diabetic chronic kidney disease; J44.9 Chronic obstructive pulmonary disease, unspecified; N18.30 Chronic kidney disease, stage 3 unspecified; I12.9 Hypertensive chronic kidney disease with stage 1 through stage 4 chronic kidney disease, or unspecified chronic kidney disease; K72.10 Chronic hepatic failure without coma; Z90.49 Acquired absence of other specified parts of digestive tract; Z88.5 Allergy status to narcotic agent; Z88.8 Allergy status to other drugs, medicaments and biological substances; Z79.899 Other long term (current) drug therapy; Z71.6 Tobacco abuse counseling; Z98.891 History of uterine scar from previous surgery; Z79.84 Long term (current) use of oral hypoglycemic drugs
CPT/HCPCS: 36415; 36416; 36600; 71045; 74018; 74022; 74176; 74177; 80048; 80053; 81001; 82274; 82805; 83605; 83690; 83735; 83880; 83935; 84300; 84443; 84484; 85025; 86850; 86900; 86901; 87077; 87086; 87186; 93005; 93010; 93306; 94640; 96374; J0282; J0696; J0780; J1650; J1815; J1940; J2250; J2405; J2550; J2704; J2765; J2919; J3490; J7030; J7070; J7620; Q0162; Q9967

== ENCOUNTER 2024-07-18 13:45 | Outpatient (CLI) | payer MEDICARE, OTHER | END 2024-07-18 13:46 | disposition home or self-care (01) | LOC: ULT 13:45 | PROVIDERS: ATTEND Internal Medicine | DX: E04.2 Nontoxic multinodular goiter (principal) | CPT/HCPCS: 76536 ==

== ENCOUNTER 2024-07-20 15:27 | Outpatient (CLI) | payer MEDICARE, OTHER | END 2024-07-20 15:28 | disposition home or self-care (01) | LOC: RAD 15:27 | PROVIDERS: ATTEND Internal Medicine Cardiovascular Disease | DX: R06.00 Dyspnea, unspecified (principal); I51.7 Cardiomegaly; J90 Pleural effusion, not elsewhere classified | CPT/HCPCS: 71046 ==

== ENCOUNTER 2024-09-04 09:48 | Outpatient (CLI) | payer MEDICARE, OTHER ==
[2024-09-04 12:10] LABS: #Basophils 0.03 10x3/uL (0.0-0.2); %Basophils 0.6 % (0.0-1.0); %Eosinophils 2.5 % (0.0-10.0); %Lymphocytes 32.8 % (21.0-51.0); %Monocytes 6.5 % (0.0-10.0); %Neutrophils 57.4 % (42.0-75.0); Hematocrit 35.8 % (36.0-47.0); Hemoglobin 11.1 g/dL (12.0-16.0); Mean Corpuscular Hemoglobin 27.1 pg (27.0-31.0); Mean Corpuscular Volume 87.3 fL (78.0-98.0); Mean Platelet Volume 9.2 fL (7.4-10.4); Platelet Count 154 10x3/uL (130-400); RBC Distribution Width 18.2 % (11.5-14.5)
[2024-09-04 12:37] LABS: ALT (SGPT) 18 U/L (8-55); AST (SGOT) 23 U/L (5-34); Albumin 3.9 g/dL (3.4-4.8); Alkaline Phosphatase 93 U/L (40-110); Anion Gap 16 mmol/L (10-20); BUN (Urea Nitrogen) 16 mg/dL (9.8-20.1); Bilirubin, Total 0.7 mg/dL (0.2-1.2); Calc. Creatinine Clearance 0 mL/min (70-130); Calcium 9.6 mg/dL (7.8-10.44); Carbon Dioxide 23 mmol/L (23-31); Chloride 105 mmol/L (98-107); Estimated GFR 83; Globulin 3.1 g/dL (2.4-3.5); Glucose 83 mg/dL (83-110); Sodium 140 mmol/L (136-145)
== END 2024-09-04 09:49 | disposition home or self-care (01) ==
LOC: LABBT 09:48
PROVIDERS: ATTEND Internal Medicine Cardiovascular Disease
DX: Z01.818 Encounter for other preprocedural examination (principal); K92.2 Gastrointestinal hemorrhage, unspecified; W19.XXXA Unspecified fall, initial encounter
CPT/HCPCS: 80053; 85025; 86850; 86900; 86901; 93005; 93010

== ENCOUNTER 2024-09-05 09:30 | Inpatient (IN) | payer MEDICARE, OTHER ==
[2024-09-04 10:12] VITALS: BMI 23.3
[2024-09-11] MEDS ORDERED: Heparin 10,000 UNITS/ 10 ML VIAL ONE (06:48)
[2024-09-11] MEDS ORDERED: Protamine Sulfate 50 MG/5 ML VIAL ONE (06:57)
[2024-09-11] MEDS ORDERED: fentaNYL PF 100 MCG/2 ML SYRINGE ONE (07:10)
[2024-09-11] MEDS ORDERED: Rocuronium Bromide 10 MG/ML (10ML VIAL) ONE (07:54)
[2024-09-11] MEDS ORDERED: PROPOFOL 200 MG/20 ML VIAL ONE (07:54)
[2024-09-11] MEDS ORDERED: Lidocaine 1% PF 5 ML VIAL ONE (07:54)
[2024-09-11] MEDS ORDERED: Dexamethasone 20 MG/5 ML VIAL ONE (07:54)
[2024-09-11 07:55] LABS: INR-International Normal Ratio 1.2
[2024-09-11 07:56] LABS: PTT 33.3 sec (22.9-36.1)
[2024-09-11] MEDS ORDERED: CEFAZOLIN 2 GM VIAL ONE (08:19)
[2024-09-11] MEDS ORDERED: SUGAMMADEX SODIUM 200 MG/2 ML VIAL ONE (09:11)
[2024-09-11] MEDS ORDERED: Promethazine HCl 25 MG/ML VIAL ONE (09:30)
[2024-09-11] MEDS ORDERED: Sodium Chloride 0.9% 100 ML ONE (09:31)
[2024-09-11] MEDS ORDERED: Ondansetron PF 4 MG/2 ML Vial ONE (09:41)
[2024-09-11] MEDS ORDERED: fentaNYL 50 mcg/mL 1 mL Vial ONE ×2 (09:41→10:35)
[2024-09-11] MEDS ORDERED: Iopamidol 370 76% 100 ML VIAL ONE (12:39)
== END 2024-09-11 13:20 | disposition home or self-care (01) | DRG 274 ==
LOC: SURG A 09-11 06:04
PROVIDERS: ADMIT Internal Medicine Cardiovascular Disease; ATTEND Internal Medicine Cardiovascular Disease
PROC: 02L73DK Occlusion of Left Atrial Appendage with Intraluminal Device, Percutaneous Approach (ICD-10-PCS; principal; 2024-09-11)
PROC: B24BZZ4 Ultrasonography of Heart with Aorta, Transesophageal (ICD-10-PCS; 2024-09-11)
DX: I48.0 Paroxysmal atrial fibrillation (principal); Z00.6 Encounter for examination for normal comparison and control in clinical research program; Z88.8 Allergy status to other drugs, medicaments and biological substances; D64.9 Anemia, unspecified; Z79.84 Long term (current) use of oral hypoglycemic drugs; Z79.01 Long term (current) use of anticoagulants; Z79.899 Other long term (current) drug therapy
CPT/HCPCS: 33340; 36416; 85347; 86850; 86900; 86901; 93306; 93312; C1759; C1760; C1889; C1894; J1100; J1644; J2405; J2550; J2704; J2720; J3010

== ENCOUNTER 2024-11-18 15:04 | Emergency (ER) | payer MEDICARE, OTHER ==
[2024-11-18 15:46] LABS: #Basophils Less than 0.03 10x3/uL (0.0-0.2); %Basophils 0.3 % (0.0-1.0); %Eosinophils 1.5 % (0.0-10.0); %Lymphocytes 28.4 % (21.0-51.0); %Monocytes 6.1 % (0.0-10.0); %Neutrophils 62.7 % (42.0-75.0); Hematocrit 30.4 % (36.0-47.0); Hemoglobin 8.7 g/dL (12.0-16.0); Mean Corpuscular HGB CONC 28.6 g/dL (32.0-36.0); Mean Corpuscular Hemoglobin 24.5 pg (27.0-31.0); Mean Corpuscular Volume 85.6 fL (78.0-98.0); Mean Platelet Volume 9.4 fL (7.4-10.4); Platelet Count 327 10x3/uL (130-400); RBC Distribution Width 15.5 % (11.5-14.5); Red Blood Cell (RBC) Count 3.55 mill/uL (4.20-5.40)
[2024-11-18 16:04] LABS: Hypochromia SLIGHT = 6-15 cells HPF (0-5); Platelet Adequacy Comment Platelets Normal; Polychromasia SLIGHT = 2-3 cells HPF (0-2); Tear Drops SLIGHT = 2-5 cells HPF (0-1)
[2024-11-18 16:05] LABS: ALT (SGPT) 22 U/L (Less than 34); AST (SGOT) 44 U/L (11-34); Albumin 3.7 g/dL (3.1-4.5); Alkaline Phosphatase 107 U/L (40-110); Anion Gap 20 mmol/L (10-20); BUN (Urea Nitrogen) 11 mg/dL (9.8-20.1); Bilirubin, Total 0.7 mg/dL (0.3-1.2); Calc. Creatinine Clearance 0 mL/min (70-130); Calcium 9.3 mg/dL (7.8-10.44); Carbon Dioxide 18 mmol/L (23-31); Chloride 105 mmol/L (98-107); Estimated GFR 61; Globulin 4.3 g/dL (2.4-3.5); Glucose 109 mg/dL (83-110); Potassium 3.9 mmol/L (3.5-5.1); Sodium 139 mmol/L (136-145)
[2024-11-18 16:06] LABS: Troponin I 0.014 ng/mL (< 0.028)
== END 2024-11-18 19:13 | disposition home or self-care (01) ==
LOC: ERS 15:04
DX: R06.02 Shortness of breath (principal); D64.9 Anemia, unspecified; R05.9 Cough, unspecified; R79.89 Other specified abnormal findings of blood chemistry; E11.9 Type 2 diabetes mellitus without complications; I10 Essential (primary) hypertension; I48.91 Unspecified atrial fibrillation; K21.9 Gastro-esophageal reflux disease without esophagitis; F17.210 Nicotine dependence, cigarettes, uncomplicated; Z55.6 Problems related to health literacy; Z79.01 Long term (current) use of anticoagulants; Z79.82 Long term (current) use of aspirin; Z79.84 Long term (current) use of oral hypoglycemic drugs; Z79.899 Other long term (current) drug therapy; Z95.0 Presence of cardiac pacemaker
CPT/HCPCS: 71045; 80053; 83880; 84484; 85025; 87428; 93005